=== PATIENT | male | born 1940 | race Caucasian/White ===

== ENCOUNTER → 2018-06-17 | Outpatient (CLI) | payer MEDICARE, OTHER ==
[2018-03-23 11:00] VITALS: BP 126/55
[~2018-06-17] MED LIST: ASPI-630 PO; ASPI325T11 PO; CLOP75TA PO; CRESTOR20 MG PO; GLIM2TAB2 PO; HYDR12.575 PO; HYDR25TA10 PO; METF500T16 PO; METO25TA4 PO; PIOG30TA41 PO; PSEU120T9 PO; RANI-376 PO; SERT50TA8 PO; TEMA15CA PO; TEMA30CA PO
--- NOTE | 2018-06-18 02:38 | PAIN ---
DATE OF SERVICE: 06/17/2018 INITIAL CONSULTATION FOR PAIN CLINIC CHIEF COMPLAINT: Neck and left upper extremity pain. HISTORY OF PRESENT ILLNESS: This is a 78-year-old male who presents with history of pain in the base of the neck and left arm and shoulder and into the hand and fingers since November when he fell out of a chair, fell backwards on the chair on the back of his neck and head. The patient reports he had pain within a day in the neck and shoulder posteriorly, into the anterior biceps, posterior triceps, into the forearm as well as the posterior forearm, into the hand and fingers and numbness and tingling involving all the fingers and has been fairly consistent since that time. The patient reports prior to that, he did not have any pain in the neck or the shoulders or arm. The patient reports it is not awakening him from sleep at night, however. It does not affect his bowel or bladder control. It does affect his ability to walk, sometimes when he is using his left arm, especially driving car seems to bother him with using the left arm with repetitive motions, reaching up over his head with his left arm as well and with extension of the cervical spine, it can reproduce the pain and the radiation to the left arm and hand. The patient reports he has been looking down and keeping his chin to his chest, which is becoming difficult to do as well. The patient reports he has had some chiropractic treatment, but no formal physical therapy at this time. The chiropractic treatment did help, but only temporarily. The patient does not take any medications for the pain at this time. He had tried some Tylenol and fxjv-xqd-thzaxfh Advil earlier in the summer, but without significant reduction and has not taken any of these since that time. The patient describes the pain as aching and dull, sharp, shooting, tingling with cold sensation, sometimes in the left arm and hand as well as a throbbing pain in the base of the neck, which is becoming more constant with time. The patient rates his disability rate from 0-10, 10 being the worst, is 1 with family and home responsibilities, recreation and occupation, 3 with self-care, 0 with sexual behavior and 0 with life support activities. The patient did have MRI scan of the cervical spine showing multilevel spondylosis with moderate to advanced neural foraminal narrowing present at C5-C6 with diffuse disk bulge at C3-C4, C4-C5, C5-C6, C6-C7 with C5-C6 narrowing of spinal canal and compression of thecal sac and moderate to advanced bilateral neural foraminal narrowing. C6-C7 shows disk bulge present with bilateral facet arthropathy and spinal canal narrowing and effacement of the thecal sac with moderate bilateral neural foraminal narrowing present as well. PAST MEDICAL HISTORY: Significant for type 2 diabetes, hypertension, hyperlipidemia, coronary artery disease, previous myocardial infarction, history of arthritis. PAST SURGICAL HISTORY: Includes appendectomy, coronary artery bypass grafting, cholecystectomy, cataract extraction, carpal tunnel repair and cardiac stents placed in March 2018. CURRENT MEDICATIONS: Include daily baby aspirin, Plavix, Zantac, temazepam, metoprolol, sertraline, glimepiride, Actos, Sudafed, hydrochlorothiazide, metformin and Crestor. ALLERGIES: The patient has no known drug allergies. FAMILY HISTORY: Significant for cancers and diabetes. SOCIAL HISTORY: The patient drinks about 6 alcoholic beverages a year. Does not smoke. Does not use any illegal, illicit or recreational drugs. He is and lives locally in [place], [place]. 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 REVIEW OF SYSTEMS: The patient's review of systems is positive for those items mentioned in history of present illness. All systems reviewed and otherwise negative. It is complete, full and well documented on the patient's chart. PHYSICAL EXAMINATION: VITAL SIGNS: The patient's blood pressure is 136/60, pulse 62, respirations 18, temperature 98.3 degrees Fahrenheit. Height is 5 feet 7 inches and weight is 220 pounds. GENERAL: The patient is awake, alert, oriented, appropriate, very pleasant demeanor. HEENT: Head shows normocephalic, atraumatic. Extraocular movements are intact and symmetrical. Oral cavity: Mucous membranes moist and pink. Dentition is intact. NECK: Shows anterior throat supple without palpable lymphadenopathy noted. Swallow reflex symmetrical. CHEST: Shows normal with inspection. Breath sounds clear to auscultation bilaterally. HEART: Shows S1, S2 clear. No murmurs auscultated. ABDOMEN: Soft, nontender, nondistended. No palpable organomegaly is noted. No rebound or guarding demonstrated. MUSCULOSKELETAL: Shows spine grossly in the midline. Normal appearing thoracic kyphosis, cervical lordotic curvature and lumbar lordotic curvature. The patient's neck shows good rotational motion both laterally greater than 45 degrees closer to 90 degrees right and left as well as full forward flexion with extension. The patient does have pain in the left shoulder and arm, was reproduced with extension of the spine, even 30-40 degrees off midline in neutral position. No pain on the right side. The patient's posterior cervical musculature shows symmetrical on inspection, on palpation shows some moderate tenderness, only diffusely in the inferior aspect of the cervical paraspinous musculature, more on the left than the right, but without atrophy, hypertrophy, no trigger points, no radiation of pain, no tenderness over the spinous processes. There is some moderate tenderness in the superior aspect of the trapezius on the left only, but not the right, again without asymmetry or atrophy, hypertrophy or trigger points. EXTREMITIES: The patient's upper extremities show deep tendon reflexes 2+ in the biceps and triceps tendons are equal. Motor exam is strong with family support specialist strength rated at 4/5 on the left, 5/5 on the right. Bicep and tricep flexion is intact at 5/5 and equal bilaterally. Peripheral pulses are 2+ radial distribution. No peripheral edema is noted. Shoulder shrug is strong and intact without loss of strength on resistance with some minor pain in the left base of the shoulder and neck on the left side only without loss of strength. This is true with abduction of shoulder to 90 degrees as well without loss of strength on resistance. SKIN: Warm and dry, good turgor. No edema. No sores, rashes or bruising. IMPRESSION: 1. This is a 78-year-old male with approximately 7-month history of pain in the base of the neck and left upper extremity in a radicular fashion. 2. Cervical spine MRI as noted. 3. Type 2 diabetes. 4. Coronary artery disease. 5. Hypertension. 6. Arthritis. PLAN: Options were discussed with the patient including conservative medical management, physical therapy and interventional techniques. He would like to pursue with interventional techniques. We discussed a cervical epidural steroid injection using descriptions as well as anatomical models to describe the procedure. We will first check with his director telehealth to see if it is deemed safe and appropriate to hold his Plavix for 7 days prior to potential cervical epidural steroid injection. In the meantime, the patient will maintain with stretching and strengthening exercises and we will wait to hear from his director telehealth and if deemed appropriate, we will have him return for cervical epidural steroid injection at that time. SHA CASTILLO MD DR: TON/mynor JOB#: [id number] / [id number] MISHA Hill MD
== END | disposition home or self-care (01) ==
LOC: PNCL 07:59
PROVIDERS: ATTEND Anesthesiology
DX: M54.12 Radiculopathy, cervical region (principal); M79.602 Pain in left arm; E11.9 Type 2 diabetes mellitus without complications; I25.10 Atherosclerotic heart disease of native coronary artery without angina pectoris; I10 Essential (primary) hypertension; M19.90 Unspecified osteoarthritis, unspecified site
CPT/HCPCS: G0463

== ENCOUNTER → 2018-09-02 | Outpatient (CLI) | payer MEDICARE, OTHER ==
[2018-03-23 11:00] VITALS: BP 126/55
--- NOTE | 2018-09-02 12:31 | RAD ---
MR#: [id number] Date of Study: 09/02/2018 Ordering Physician: TEE SHEPHERD, Referring Physician: BENITA SAUCEDA Tech: RT Tim (R) (N) APPROVED REPORT Test Type: Exercise Stress Nurse/Tech: Graciela Aly R.N. Test Indications: hx CABG Cardiac History: cardiac stents, htn, DM Medications: See Electronic Medical Record Medical History: See Electronic Medical Record Resting ECG: SB Resting Heart Rate: 56 bpm Resting Blood Pressure: 137/62mmHg Pretest Chest Pain: No chest pain Nurse/Tech Notes S1S2 Consent: The procedure was explained to the patient in lay terms. Informed consent was witnessed. Primitivo eout was entered into [employer]. History and Stress Test performed by RT Tim (R) (N) Stress Symptoms SOB, fatigue. Some T waves flipped . Notified Anastacio SNEED of the ST and T wave changes. wiil have pt s flori until cardiology sees images. POST EXERCISE Reason for Termination: Reached target heart rate Target HR: Yes Max HR: 119 bpm 100% of Maximum Predicted HR: 119 bpm Exercise duration: 7:59 min:sec, 3 Stage Exercise capacity: 10METs Max Blood Pressure: 188/79mmHg Blood Pressure response to exercise: Normal blood pressure response during stress. Heart Rate response to exercise: wnl Chest Pain: No. Arrhythmia: No. ST Change: Yes. slight ST elevation in lead AVR,V1. ST depression in leads II,III, V4-V6, AVF INTERPRETATION Stress EKG Conclusion: Technically difficult EKG due to motion artifact. Within in these limitations, the EKG is abnormal with lateral ST segment depressions, likely suggestive of subendocardial ischemi a. Imaging Protocol IMAGE PROTOCOL: Rest Tc-99m/stress Tc-99m 1 day Rest: Stress: Viability: Radiopharm.Tc99m AobvzprdtEa05z Sestamibi Eqhb67jOw 31.5mCi Duration 15min. 13min. Img Date 09/02/2018 09/02/2018 Inj-Img Myeu87gan. 60min. Rest Admin Site:IV - Right HandAdministrator:Varun Sorenson, RT (R)(N) Stress Admin Site: IV - Right HandAdministrator: Kristin Cole, RT (R)(N) STRESS DATA End Diast. Vol.117.0mlLVEDV index BSA56.0ml End Syst. Vol.30.0mlLVESV index BSA14.0ml Myocardial Epkt375.0gEject. Oqopdekw90.0% Stress Scores Regional WT0.00Summed WT2.00 Regional WM0.00Summed WM4.00 The rest and stress images show normal perfusion, normal contraction and thickening. LV Perf. Quant 17 Seg. SSS3.00 17 Seg. SRS4.00 17 Seg. SDS0.00 Stress Defect Extent (% LAD)0.00Rest Defect Extent (% LAD)0.00Rev. Defect Extent (% LAD)0.00 Stress Defect Extent (% LCX) 23.80Rest Defect Extent (% LCX)11.30Rev. Defect Extent (% LCX)2.50 Stress Defect Extent (% RCA)4.40Rest Defect Extent (% RCA)0.00Rev. Defect Extent (% RCA)0.00 Stress Defect Extent (% WARREN)6.10Rest Defect Extent (% WARREN)2.00Rev. Defect Extent (% WARREN)0.70 Other Information Quality:Average Risk Assessment: Low-Moderate Risk Conclusion 1. Technically difficult EKG due to motion artifact, within these limitations, the EKG is abnormal wi th 2-[address] segment depressions. 2. Below average exercise capacity with 7.0 Mets achieved. 3. Normal perfusion at stress/rest. 4. Normal EF at > 60% Signed by : Cholo Laboy, Electronically Approved : 09/02/2018 12:31:15
--- NOTE | 2018-09-07 10:56 | CARD ---
MR#: [id number] Date of Study: 09/02/2018 Ordering Physician: TEE SHEPHERD, Referring Physician: TEE SHEPHERD, Tech: Ayah Manuel [facility] APPROVED REPORT EXAM: Two-dimensional and M-mode echocardiogram with Doppler and color Doppler. Other Information Quality : FairHR: 66bpm Rhythm : NSR INDICATION Dyspnea Surgery/Intervention CABG: RISK FACTORS Hypertension Obesity Hyperlipidemia Diabetes 2D DIMENSIONS RVDd4.2 (2.9-3.5cm)Left Atrium(2D)3.9 (1.6-4.0cm) IVSd1.2 (0.7-1.1cm)Aortic Root(2D)2.9 (2.0-3.7cm) LVDd4.9 (3.9-5.9cm)LVOT Diameter2.4 (1.8-2.4cm) PWd1.2 (0.7-1.1cm)LVDs2.5 (2.5-4.0cm) FS (%) 49.4 %SV92.9 ml LVEF(%)80.6 (>50%) Aortic Valve AoV Peak Thuan.146.1cm/sAoV VTI38.4cm AO Peak GR.8.5mmHgLVOT Peak Thuan.127.8cm/s AO Mean GR.5mmHgAVA (VMAX)4.03cm2 Mitral Valve MV E Ggyyiecq894.2cm/sMV DECEL SZEV870vg MV A Cpilykod09.3cm/sE/A Ratio1.1 MV A Efvuliyg668lq Pulmonary Valve PV Peak Pgzopqeg942.7cm/s Tricuspid Valve TR P. Nvqhyadq157by/sTR Peak Gr.29mmHg Pulmonary Vein S1 Scqiyjjm56.0cm/sD2 Wruhmfmh16.1cm/s PVa defqafwe968vzeg LEFT VENTRICLE The left ventricle is normal size. There is borderline to mild concentric left ventricular hypertroph y. The left ventricular systolic function is normal and the ejection fraction is within normal range. Estimated EF 60-65% There is normal LV segmental wall motion. RIGHT VENTRICLE The right ventricle is normal size. There is normal right ventricular wall thickness. The right ventr icular systolic function is normal. ATRIA The left atrium size is normal. The right atrium size is normal. The interatrial septum is intact wit h no evidence for an atrial septal defect or patent foramen ovale as noted on 2-D or Doppler imaging. AORTIC VALVE The aortic valve is normal in structure and function. Doppler and Color Flow revealed no significant aortic regurgitation. There is no significant aortic valvular stenosis. MITRAL VALVE The mitral valve is normal in structure and function. There is no mitral valve stenosis. Doppler and Color-flow revealed mild mitral regurgitation. TRICUSPID VALVE The tricuspid valve is normal in structure and function. Doppler and Color Flow revealed mild tricusp id regurgitation. Estimated PAP is 33 mmHg. There is no tricuspid valve stenosis. PULMONIC VALVE Doppler and Color Flow revealed no pulmonic valvular regurgitation. There is no pulmonic valvular demetrio nosis. GREAT VESSELS The aortic root is normal in size. The ascending aorta is normal in size. The IVC is normal in size a nd collapses >50% with inspiration. PERICARDIAL EFFUSION There is no evidence of significant pericardial effusion. Critical Notification Critical Value: No <Conclusion> The left ventricular systolic function is normal and the ejection fraction is within normal range. Es timated EF 60-65% There is normal LV segmental wall motion. Signed by : Cholo Laboy, Electronically Approved : 09/02/2018 14:06:15
== END | disposition home or self-care (01) ==
LOC: NM 08:03
PROVIDERS: ATTEND Internal Medicine Cardiovascular Disease
DX: I08.1 Rheumatic disorders of both mitral and tricuspid valves (principal); I11.9 Hypertensive heart disease without heart failure; E11.9 Type 2 diabetes mellitus without complications; F17.200 Nicotine dependence, unspecified, uncomplicated; Z95.5 Presence of coronary angioplasty implant and graft; Z95.1 Presence of aortocoronary bypass graft
CPT/HCPCS: 78452; 93017; 93306; A9500; 96376

== ENCOUNTER → 2018-10-06 | Outpatient (CLI) | payer MEDICARE, OTHER ==
[2018-03-23 11:00] VITALS: BP 126/55
[~2018-10-06] MED LIST changes: +IOHEXOL 180 MG/ML 10 ML VIAL. ONE; +methylPREDNISolone ACETATE 40 MG/ML VIAL. ONE; +methylPREDNISolone ACETATE 80 MG/ML VIAL. ONE
--- NOTE | 2018-10-06 14:13 | PAIN ---
DATE OF SERVICE: 10/06/2018 PROGRESS NOTE FOR PAIN CLINIC DIAGNOSIS: Cervical radiculopathy with cervical degenerative disk disease. HISTORY OF PRESENT ILLNESS: The patient is a 78-year-old male who returns for followup status post initial evaluation and preauthorization to be off his Plavix. He was cleared, off of this for 5 days per his hooker on. He has been off this for 5 days now and we will proceed with a cervical epidural steroid injection today. The patient reports still pain in the base of the neck, left upper extremity and shoulders, was previously rated a 9 on a scale of 10 at its worst, on the past week, 9 on average and 9 at its least and is a 9 today. The patient reports it is aching and dull, worse with looking up or raising his head up, was looking down and he feels pretty good. He is able to do things around the yard and possibly when he is looking down at the yard to the ground, lifting his head up caused significant pain. The patient reports it awakens him from sleep once or twice a night. He sleeps about 6 hours at a time. The patient reports no new motor or sensory deficits and no new changes or other problems. Again, has been off his Plavix now for 5 days. PHYSICAL EXAMINATION: VITAL SIGNS: The patient's blood pressure 140/64, pulse 61, respirations 18 and temperature 97.9 degrees Fahrenheit. Weight is 217 pounds. GENERAL: The patient is awake, alert, oriented, appropriate and very pleasant demeanor. HEENT: Head shows normocephalic and atraumatic. Extraocular movements are intact and symmetrical. Oral cavity, mucous membranes are moist and pink. Dentition is intact. NECK: Shows anterior throat supple without palpable lymphadenopathy noted. Swallow reflex is symmetrical. CHEST: Shows normal on inspection. Breath sounds are clear to auscultation bilaterally. HEART: Shows S1 and S2 clear. No murmurs auscultated. ABDOMEN: Soft, nontender and nondistended. No palpable organomegaly is noted. BACK: Shows spine grossly in the midline, normal-appearing cervical lordotic curvature and thoracic kyphotic is slightly exaggerated. Cervical paraspinous muscle shows symmetrical on inspection and palpation shows some moderate tenderness diffusely bilaterally but only diffusely in the inferior aspect of the cervical paraspinous muscles as well as the left greater than right superior medial trapezius on the left than right but no trigger points. No atrophy or hypertrophy and no radiation of pain. The patient has good rotational motion of the cervical spine with some moderate tenderness with extension but not with forward flexion, right or left lateral rotation. EXTREMITIES: The patient's upper extremities show deep tendon reflexes 2+ in the biceps and triceps tendons. Motor exam is approximately 4 on a scale 5 on the left and 5/5 on the right. Peripheral pulses are 2+ radial distribution. No peripheral edema is noted bilaterally. Options were discussed with the patient. The patient's old chart was reviewed as well as his current medication regimen updated. Current review of systems updated today as well. We will proceed with a cervical epidural steroid injection today with fluoroscopic guidance. Risks were again discussed including, but not limited to bleeding, infection, possibility of epidural hematoma, subsequent neurological compromise, dural puncture, headaches, spinal cord and/or nerve damage, side effects of steroid medication and poor results regarding pain control. The patient understands and wished to proceed. The patient will return to the clinic in approximately 2 weeks for followup, was counseled as to return appointment, activity level and side effects to be aware of. DIAGNOSIS: Cervical radiculopathy with cervical degenerative disk disease. PROCEDURE: Cervical epidural steroid injection, translaminar approach, C6-C7 level using C-arm fluoroscopic guidance under sterile prep and drape using local anesthetic. MEDICATION INJECTED: A total of 120 mg Depo-Medrol plus 5 mL of preservative-free normal saline and 2 mL of contrast. CONDITION AT DISCHARGE: Stable. The patient tolerated procedure well and had no complications. SHA CASTILLO MD DR: TON/mynor JOB#: [id number] / [id number]
== END ==
LOC: PNCL 08:48
PROVIDERS: ATTEND Anesthesiology
DX: M50.123 Cervical disc disorder at C6-C7 level with radiculopathy (principal); M25.512 Pain in left shoulder
CPT/HCPCS: 62321; J1030; J1040; Q9965

== ENCOUNTER → 2018-11-15 | Outpatient (CLI) | payer MEDICARE, OTHER ==
[2018-03-23 11:00] VITALS: BP 126/55
[~2018-11-15] MED LIST changes: -IOHEXOL 180 MG/ML 10 ML VIAL. ONE; -methylPREDNISolone ACETATE 40 MG/ML VIAL. ONE; -methylPREDNISolone ACETATE 80 MG/ML VIAL. ONE
--- NOTE | 2018-11-15 10:19 | RAD ---
EXAM: Lumbar spine, 3 views. HISTORY: Sacroiliac and lower back pain. COMPARISON: None. FINDINGS: 3 views of the lumbar spine are obtained. There are hypoplastic T12 ribs or elongated congenitally nonfused L1 transverse processes. There is a transitional lumbosacral segment. These are normal variants. There is lumbar levoscoliosis. There is degenerative endplate remodeling and osteophytosis throughout the lumbar spine. There is advanced facet arthropathy predominantly at the lumbosacral junction. There are cholecystectomy clips. IMPRESSION: 1. Multilevel degenerative change throughout the lumbar spine and lumbar scoliosis, described above. 2. Transitional lumbosacral segment and thoracolumbar segment, a normal variant. Electronically signed by: Kristin Garcia MD (11/15/2018 10:16 AM) [facility]
== END | disposition home or self-care (01) ==
LOC: RAD 09:34
PROVIDERS: ATTEND Family Medicine
DX: M47.816 Spondylosis without myelopathy or radiculopathy, lumbar region (principal); M41.86 Other forms of scoliosis, lumbar region; M12.88 Other specific arthropathies, not elsewhere classified, other specified site; M53.3 Sacrococcygeal disorders, not elsewhere classified; Z90.49 Acquired absence of other specified parts of digestive tract
CPT/HCPCS: 72100

== ENCOUNTER → 2018-11-16 | Outpatient (CLI) | payer MEDICARE, OTHER ==
[2018-03-23 11:00] VITALS: BP 126/55
[~2018-11-16] MED LIST changes: +IOHEXOL 180 MG/ML 10 ML VIAL. ONE; +methylPREDNISolone ACETATE 40 MG/ML VIAL. ONE; +methylPREDNISolone ACETATE 80 MG/ML VIAL. ONE
--- NOTE | 2018-11-16 22:30 | PAIN ---
DATE OF SERVICE: 11/16/2018 PROGRESS NOTE FOR PAIN CLINIC DIAGNOSIS: Cervical radiculopathy with cervical degenerative disk disease. HISTORY OF PRESENT ILLNESS: The patient is a 78-year-old male who returns for followup status post an evaluation and holding his Plavix, now he has been off for 5 days for a second injection today. The patient reports still significant pain in the base of the neck and shoulders, especially in the left upper extremity, left posterior deltoid, triceps, into the forearm and hand with some numbness and tingling as well. The patient reports it is a 3 on a scale of 10 at all times, average, worst and least over the past week. No new motor or sensory deficits or other changes. The patient reports it does not awaken him from sleep at night. It is worse with repetitive motions, left upper extremity, raising his arm over his head or lifting items with his left arm. The patient reports no other changes. PHYSICAL EXAMINATION: VITAL SIGNS: The patient's blood pressure is 135/62, pulse 58, respirations are 16, temperature is 98.4 degrees Fahrenheit, height is 5 feet 7 inches, weight is 215 pounds. GENERAL: The patient is awake, alert, oriented, appropriate, very pleasant demeanor. HEENT: Shows normocephalic, atraumatic. Extraocular movements are intact and symmetrical. Oral cavity: Mucous membranes moist and pink. Dentition is intact. NECK: Shows anterior throat supple without palpable lymphadenopathy noted. Swallow reflex symmetrical. CHEST: Shows normal on inspection. Breath sounds are clear to auscultation bilaterally. HEART: Shows S1, S2 clear. No murmurs auscultated. ABDOMEN: Soft, nontender, nondistended. No palpable organomegaly is noted. No rebound or guarding demonstrated. BACK: Shows spine grossly in the midline. Normal-appearing thoracic kyphosis and lumbar lordotic curvature. Cervical paraspinous muscle shows symmetrical on inspection, on palpation shows some moderate tenderness diffusely bilaterally, but only diffusely without significant radiation. The patient has good rotational motion of cervical spine, both laterally as well as extension and flexion without significant difficulty. EXTREMITIES: The patient's upper extremities show deep tendon reflexes 2+ in the biceps and triceps tendons. Motor exam shows a 4 on a scale of 5 on the left and 5/5 on the right. Peripheral pulses are 2+ radial distribution. No peripheral edema is noted bilaterally. Options were discussed with the patient. The patient's old chart was reviewed as was his current medication regimen updated. Current review of systems updated today as well. We will proceed with a second in the series of cervical epidural steroid injection today with fluoroscopic guidance. Risks were again discussed including, but not limited to bleeding, infection, possibility of epidural hematoma, subsequent neurological compromise, dural puncture, headaches, spinal cord and/or nerve damage, side effects of steroid medication and poor results regarding pain control. The patient understands and wished to proceed. The patient will return to clinic in approximately 2 weeks for followup. She was counseled on return appointment, activity level and side effects to be aware of. DIAGNOSIS: Cervical radiculopathy with cervical degenerative disk disease. PROCEDURE: Cervical epidural steroid injection, translaminar approach C6-C7 level using C-arm fluoroscopic guidance under sterile prep and drape using local anesthetic. MEDICATION INJECTED: A total of 120 mg Depo-Medrol plus 5 mL of preservative-free normal saline and 2 mL of contrast. CONDITION AT DISCHARGE: Stable. The patient tolerated the procedure well, had no complications. SHA CASTILLO MD DR: TON/mynor JOB#: [id number] / [id number]
== END ==
LOC: PNCL 10:59
PROVIDERS: ATTEND Anesthesiology
DX: M50.123 Cervical disc disorder at C6-C7 level with radiculopathy (principal)
CPT/HCPCS: 62321; J1030; J1040; Q9965

== ENCOUNTER 2018-12-28 11:03 | Emergency (ER) | payer MEDICARE, OTHER ==
[~2018-12-28] VITALS: Ht 170.2 cm; Wt 97.5 kg
[~2018-12-28 11:03] MED LIST changes: -IOHEXOL 180 MG/ML 10 ML VIAL. ONE; -methylPREDNISolone ACETATE 40 MG/ML VIAL. ONE; -methylPREDNISolone ACETATE 80 MG/ML VIAL. ONE
--- NOTE | 2018-12-28 11:59 | RAD ---
CHEST AP ONLY History: Shortness of breath. COMPARISON: None are available Widening of the cardiomediastinal silhouette although this may be accentuated by the portable technique and low lung volumes. No evidence of pneumothorax. No pleural effusion. Limited penetration of the left lung base, difficult to exclude small effusion or focal infiltrate here. Lungs appear otherwise clear. Degenerative changes of both shoulders. IMPRESSION: 1. Widening of the cardiomediastinal silhouette, although this may be exaggerated by technique. 2. Mild density at the left lateral lung base, may just be due to limited penetration, but small infiltrate or effusion is possible. Electronically signed by: Mohit Sheldon MD (12/28/2018 11:56 AM) [id number]
[2018-12-28 12:10] LABS: BASO % 1 % (0-3); EOS # 0.2 x10^3/uL (0.0-0.7); EOS % 4 % (0-3); HEMATOCRIT 33.6 % (39.0-53.0); HEMOGLOBIN 11.3 g/dL (13.0-17.5); LYMPH % 19 % (24-48); MEAN CORPUSCULAR HEMOGLOBIN 31 pg (25-35); MEAN CORPUSCULAR HGB CONC 34 g/dL (31-37); MEAN CORPUSCULAR VOLUME 92 fL (79-100); MONO # 0.4 x10^3/uL (0.0-1.1); MONO % 8 % (0-9); NEUT # 3.6 x10^3/uL (1.8-7.7); NEUT % 69 % (31-73); PLATELET COUNT 163 x10^3/uL (140-400); RED BLOOD COUNT 3.64 x10^6/uL (4.30-5.70); RED CELL DISTRIBUTION WIDTH 15.2 % (11.5-14.5); WHITE BLOOD COUNT 5.2 x10^3/uL (4.0-11.0)
--- NOTE | 2018-12-28 12:14 | PHYS DOC ---
Past Medical History Past Medical History: Diabetes-Type II, GERD, Hypertension Past Surgical History: Appendectomy, Cholecystectomy, Coronary Bypass Surgery Additional Past Surgical Histo: X2 CARDIAC STENTS PLACED IN DEC Alcohol Use: None Drug Use: None Adult General Chief Complaint Chief Complaint: WEAKNESS/GENERALIZED HPI HPI Patient is a 78 year old male with history of CAD, CABG, hypertension dyslipidemia and diabetes who presents with generalized weakness which is been ongoing for the past several months. Today, the patient states weakness was worse with exertion and that he briefly felt lightheaded. Denies headache, change of vision, chest pain palpitations shortness of breath or sweats. No fevers or chills. No abdominal pain, urinary frequency urgency dysuria, diarrhea. No new medications or missed medications. No other acute symptoms or complaints. 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 All other review symptoms are negative. All other systems were reviewed and found to be within normal limits, except as documented in this note. Current Medications Current Medications Current Medications Medications (Trade) Dose Ordered Sig/Juan Start Time Stop Time Status Last Admin Dose Admin Lorazepam (Ativan Inj) 1 mg 1X ONCE 12/28/18 12:45 12/28/18 12:46 Cancel Sodium Chloride 1,000 ml @ 1,000 mls/hr 1X ONCE 12/28/18 13:30 12/28/18 14:29 12/28/18 13:40 1,000 MLS/HR Allergies Allergies Allergies Coded Allergies Type Severity Reaction Last Updated Verified No Known Drug Allergies 05/10/14 No Physical Exam Physical Exam Constitutional: Well developed, well nourished, no acute distress, non-toxic appearance. [] HENT: Normocephalic, atraumatic, bilateral external ears normal, oropharynx moist, no oral exudates, nose normal. [] Eyes: PERRLA, EOMI, conjunctiva normal, no discharge. [] Neck: Normal range of motion, no tenderness, supple, no stridor. [] Cardiovascular:Heart rate regular rhythm, no murmur [] Lungs & Thorax: Bilateral breath sounds clear to auscultation [] Abdomen: Bowel sounds normal, soft, no tenderness, no masses, no pulsatile masses. [] Skin: Warm, dry, no erythema, no rash. [] Back: No tenderness, no CVA tenderness. [] Extremities: No tenderness, no cyanosis, no clubbing, ROM intact, no edema. [] Neurologic: Alert and oriented X 3, normal motor function, normal sensory function, no focal deficits noted. [] Psychologic: Affect normal, judgement normal, mood normal. [] Current Patient Data Vital Signs Vital Signs Date Time Temp Pulse Resp B/P (MAP) Pulse Ox O2 Delivery O2 Flow Rate FiO2 12/28/18 11:20 98.1 64 18 161/72 (101) 95 Room Air 98.1 Lab Values Laboratory Tests Test 12/28/18 12:00 12/28/18 12:40 White Blood Count 5.2 x10^3/uL (4.0-11.0) Red Blood Count 3.64 x10^6/uL (4.30-5.70) L Hemoglobin 11.3 g/dL (13.0-17.5) L Hematocrit 33.6 % (39.0-53.0) L Mean Corpuscular Volume 92 fL (79-100) Mean Corpuscular Hemoglobin 31 pg (25-35) Mean Corpuscular Hemoglobin Concent 34 g/dL (31-37) Red Cell Distribution Width 15.2 % (11.5-14.5) H Platelet Count 163 x10^3/uL (140-400) Neutrophils (%) (Auto) 69 % (31-73) Lymphocytes (%) (Auto) 19 % (24-48) L Monocytes (%) (Auto) 8 % (0-9) Eosinophils (%) (Auto) 4 % (0-3) H Basophils (%) (Auto) 1 % (0-3) Neutrophils # (Auto) 3.6 x10^3/uL (1.8-7.7) Lymphocytes # (Auto) 1.0 x10^3/uL (1.0-4.8) Monocytes # (Auto) 0.4 x10^3/uL (0.0-1.1) Eosinophils # (Auto) 0.2 x10^3/uL (0.0-0.7) Basophils # (Auto) 0.0 x10^3/uL (0.0-0.2) Sodium Level 139 mmol/L (136-145) Potassium Level 4.1 mmol/L (3.5-5.1) Chloride Level 102 mmol/L (98-107) Carbon Dioxide Level 27 mmol/L (21-32) Anion Gap 10 (6-14) Blood Urea Nitrogen 36 mg/dL (8-26) H Creatinine 1.2 mg/dL (0.7-1.3) Estimated GFR (Cockcroft-Gault) 58.4 BUN/Creatinine Ratio 30 (6-20) H Glucose Level 268 mg/dL (70-99) H Calcium Level 9.4 mg/dL (8.5-10.1) Total Bilirubin 0.3 mg/dL (0.2-1.0) Aspartate Amino Transferase (AST) 17 U/L (15-37) Alanine Aminotransferase (ALT) 25 U/L (16-63) Alkaline Phosphatase 84 U/L (46-116) Troponin I Quantitative < 0.017 ng/mL (0.000-0.055) Total Protein 6.7 g/dL (6.4-8.2) Albumin 3.2 g/dL (3.4-5.0) L Albumin/Globulin Ratio 0.9 (1.0-1.7) L Urine Collection Type Void Urine Color Yellow Urine Clarity Clear Urine pH 5.5 Urine Specific [place] 1.025 Urine Protein Negative mg/dL (NEG-TRACE) Urine Glucose (UA) 250 mg/dL (NEG) Urine Ketones (Stick) Negative mg/dL (NEG) Urine Blood Negative (NEG) Urine Nitrite Negative (NEG) Urine Bilirubin Negative (NEG) Urine Urobilinogen Dipstick 1.0 mg/dL (0.2 mg/dL) Urine Leukocyte Esterase Negative (NEG) Urine RBC 0 /HPF (0-2) Urine WBC 5-10 /HPF (0-4) Urine Squamous Epithelial Cells Occ /LPF Urine Bacteria 0 /HPF (0-FEW) Urine Mucus Slight /LPF Laboratory Tests 12/28/18 12:00 Laboratory Tests 12/28/18 12:00 EKG EKG [EKG: Reviewed] Radiology/Procedures Radiology/Procedures [] Course & Med Decision Making Course & Med Decision Making Pertinent Labs and Imaging studies reviewed. (See chart for details) [Labs EKG imaging reviewed. Patient blood sugar and BUN/Cr ratio elevated with a contributing symptoms. Orthostatic vital signs negative. IV fluids given. Recommendations are to follow up with patient's PCP for further management. Patient verbalizes understanding agreement discharge instructions prior to departure. Dragon Disclaimer Dragon Disclaimer This electronic medical record was generated, in whole or in part, using a voice recognition dictation system. Departure Departure Impression: Primary Impression: Hyperglycemia Additional Impression: Dehydration Disposition: 01 HOME, SELF-CARE Condition: STABLE Referrals: MISHA SHETH MD (PCP) Patient Instructions: Dehydration, Adult, [id number], Hyperglycemia Additional Instructions: Go home and rest crease fluids and follow-up with PCP in the next 2-3 days for admission and further management of diabetes. Return to the ED if worsening symptoms. Problem Qualifiers JESUS MORENO DO Dec 28, 2018 12:14
[2018-12-28 12:21] LABS: CALCIUM 9.4 mg/dL (8.5-10.1); CREATININE 1.2 mg/dL (0.7-1.3); GFR 58.4; POTASSIUM 4.1 mmol/L (3.5-5.1)
[2018-12-28 12:27] LABS: ALBUMIN 3.2 g/dL (3.4-5.0); ALBUMIN/GLOBULIN RATIO 0.9 (1.0-1.7); TOTAL BILIRUBIN 0.3 mg/dL (0.2-1.0); TOTAL PROTEIN 6.7 g/dL (6.4-8.2)
--- NOTE | 2018-12-28 12:43 | EKG ---
[facility] [address] [place] [address] Test Date: 2018-12-28 Test Time: 11:25:58 Pat Name: JOSE MIGUEL AC Department: Room: Gender: M Quality Rep: : 1940 Requested By: JESUS MORENO Order Number: [id number] Reading MD: Measurements Intervals [place] Rate: 59 P: -55 [place]: 122 QRS: -3 QRSD: 96 T: 76 QT: 444 QTc: 444 Interpretive Statements SINUS RHYTHM LEFTWARD AXIS T ABNORMALITY IN HIGH LATERAL LEADS ABNORMAL ECG RI6.01 No previous ECG available for comparison
[2018-12-28 12:55] LABS: BILIRUBIN,URINE NEGATIVE (NEG); CLARITY,URINE CLEAR; COLOR,URINE YELLOW; NITRITE,URINE NEGATIVE (NEG); PH,URINE 5.5; PROTEIN,URINE NEGATIVE (NEG-TRACE)
[2018-12-28 13:30] LABS: SQUAMOUS EPITHELIAL CELL,UR OCC /LPF
[2018-12-28] MEDS ORDERED: IV NORMAL SALINE 1000ML BAG 1,000 ML IV ONE (13:30)
[2018-12-28 13:31] LABS: BACTERIA,URINE 0 /HPF (0-FEW); RBC,URINE 0 /HPF (0-2)
[2018-12-28 13:45] VITALS: BP 149/64
== END 2018-12-28 14:22 | disposition home or self-care (01) ==
LOC: ER 11:03
DX: E11.65 Type 2 diabetes mellitus with hyperglycemia (principal); E86.0 Dehydration; R42 Dizziness and giddiness; R53.1 Weakness; K21.9 Gastro-esophageal reflux disease without esophagitis; I10 Essential (primary) hypertension; I25.10 Atherosclerotic heart disease of native coronary artery without angina pectoris; Z90.89 Acquired absence of other organs; Z90.49 Acquired absence of other specified parts of digestive tract; Z95.5 Presence of coronary angioplasty implant and graft
CPT/HCPCS: 36415; 71045; 80053; 81001; 84484; 85025; 87086; 93005; 96360; 99285; J7030

== ENCOUNTER → 2019-03-04 | Outpatient (CLI) | payer MEDICARE, OTHER ==
[~2019-03-04] MED LIST changes: -GLIM2TAB2 PO; +GLIM2TAB3 PO
--- NOTE | 2019-03-04 08:37 | PAIN ---
DATE OF SERVICE: 03/04/2019 PROGRESS NOTE FOR PAIN CLINIC DIAGNOSES: 1. Cervical radiculopathy with cervical degenerative disk disease. 2. Lumbar radiculopathy with lumbar degenerative disk disease. HISTORY OF PRESENT ILLNESS: The patient is an 79-year-old male who returns for followup status post cervical epidural steroid injection x 2. The patient reports only about 20% improvement overall in the neck and upper extremities, left greater than right, but still significant pain in the base of the neck, left arm with activity, weight lifting and general daily activities. The patient reports it awakens him from sleep about 4-5 times. His main complaint is low back and left lower extremity pain. The patient reports pain across the low back, but in the left leg, posterior gluteus, posterolateral thigh, anterior thigh, anterior medial thigh, medial lower leg and posterior calf to the ankle on the left side. The patient reports no new motor or sensory deficits, no new bowel or bladder incontinence. He did have an MRI scan of the lumbar spine dated 01/13/2019 showing multilevel degenerative processes with bulging disks at L1-L2, L2-L3, L3-L4 with [id number] facet arthropathy, left greater than right, with degenerative changes resulting in moderate bilateral foraminal narrowing, left greater than right at L4-L5 as well. The patient reports it is worse with walking, standing and changing positions, better with sitting or lying down, but still awakens him from sleep about every 4-5 hours. PHYSICAL EXAMINATION: VITAL SIGNS: The patient's blood pressure is 115/38, pulse 50, respirations 18, temperature 98.0 degrees Fahrenheit, height is 5 feet 7 inches, weight is 212 pounds. GENERAL: The patient is awake, alert, oriented, appropriate, very pleasant demeanor. HEENT: Shows normocephalic, atraumatic. Extraocular movements are intact and symmetrical. Oral cavity: Mucous membranes moist and pink. Dentition is intact. NECK: Shows anterior throat supple without palpable lymphadenopathy noted. Swallow reflex symmetrical. CHEST: Shows normal on inspection. Breath sounds clear to auscultation bilaterally. HEART: Shows S1, S2 clear. No murmurs auscultated. ABDOMEN: Soft, nontender, nondistended. BACK: Shows spine grossly in the midline. Normal appearing thoracic kyphosis and lumbar lordotic curvature. Lumbar paraspinous muscle shows symmetrical on inspection, on palpation shows some moderate tenderness diffusely bilaterally, but only diffusely without radiation. EXTREMITIES: The patient's lower extremities show deep tendon reflexes at 1+ in the patellar and tendo calcaneus tendons are equal. Motor exam is strong with 5/5 dorsiflexion, extension, quadriceps and hamstring flexion and symmetrical. Peripheral pulses are 1+ posterior tibia. No peripheral edema is noted bilaterally. Upper extremities show deep tendon reflexes at 2+ in the biceps and triceps tendons. Motor exam is strong with sample grinder strength rated at 5/5 on the right, 4/5 on the left. Peripheral pulses are 2+ radial distribution. PLAN: Options were discussed with the patient. The patient's old chart was reviewed as his current medication regimen updated. Current review of systems updated today as well. We will have the patient hold his Plavix once again as he has maintained this medication for 7 days prior to returning for a lumbar epidural steroid injection. The patient will continue with stretching and strengthening exercises, maintain activity as tolerated and will follow up once Plavix is held for lumbar epidural steroid injection on next visit. SHA CASTILLO MD DR: TON/mynor JOB#: [id number] / [id number]
== END | disposition home or self-care (01) ==
LOC: PNCL 07:45
PROVIDERS: ATTEND Anesthesiology
DX: M51.16 Intervertebral disc disorders with radiculopathy, lumbar region (principal); M50.10 Cervical disc disorder with radiculopathy, unspecified cervical region
CPT/HCPCS: G0463

== ENCOUNTER → 2019-03-21 | Outpatient (CLI) | payer MEDICARE, OTHER ==
[~2019-03-21] MED LIST changes: +IOHEXOL 180 MG/ML 10 ML VIAL. ONE; +METO50TA6 PO; +TRAM50TA PO; +methylPREDNISolone ACETATE 40 MG/ML VIAL. ONE; +methylPREDNISolone ACETATE 80 MG/ML VIAL. ONE
--- NOTE | 2019-03-21 10:51 | PAIN ---
DATE OF SERVICE: 03/21/2019 PROGRESS NOTE FOR PAIN CLINIC DIAGNOSES: 1. Cervical radiculopathy with cervical degenerative disk disease. 2. Lumbar radiculopathy with lumbar degenerative disk disease. HISTORY OF PRESENT ILLNESS: The patient is an 79-year-old male who returns for followup status post cervical epidural steroid injections x 2. The patient reports about 20% improvement overall after the last injection, which was on 11/16/2018. The patient is having some pain in the low back and left lower extremity as well, but the pain in the neck is returning now at base of the neck, left shoulder, left upper extremity, mostly in the posterior aspect of the triceps and into the posterior and anterior forearm. The patient reports some tingling and numbness in the hand occasionally, but only occasionally. No loss of motor function. The patient reports the pain is 6 on a scale of 10 at all times, worst, average and least over the past week and is a 6 today. The patient reports it is aching and dull, again shooting into the left leg as well. The patient reports it awakens him from sleep about every 5-6 hours, but only very rarely. The patient reports no new motor or sensory deficits, no new bowel or bladder incontinence or other complaints. PHYSICAL EXAMINATION: VITAL SIGNS: The patient's blood pressure is 144/66, pulse 63, respirations 16, temperature is 98.4 degrees Fahrenheit, height is 5 feet 7 inches, weight is 215 pounds. GENERAL: The patient is awake, alert, oriented, appropriate, very pleasant demeanor. The patient is accompanied by his spouse. HEENT: Shows normocephalic, atraumatic. Extraocular movements are intact and symmetrical. Oral cavity: Mucous membranes moist and pink. Dentition is intact. NECK: Shows anterior throat supple without palpable lymphadenopathy noted. Swallow reflex is symmetrical. CHEST: Shows normal on inspection. Breath sounds are clear bilaterally. HEART: Shows S1, S2 clear. No murmurs auscultated. ABDOMEN: Soft, nontender, nondistended. No palpable organomegaly is noted. No rebound or guarding demonstrated. BACK: Shows spine grossly in the midline, normal-appearing cervical lordotic curvature, some minor flattening of the lumbar lordotic curvature, normal thoracic kyphotic curvature. The patient's cervical paraspinous muscle shows symmetrical on inspection, with palpation shows some moderate tenderness diffusely, but only diffusely in the inferior aspect of the cervical paraspinous muscles as well as the superior medial trapezius, greater on the left than the right. The patient has full rotational motion of cervical spine, both laterally as well as extension and flexion without significant difficulty. EXTREMITIES: Upper extremities show deep tendon reflexes 2+ in the biceps, triceps tendons. Motor exam is approximately 4 on a scale of 5 with left pickle processor strength and 5/5 on the right. The patient's low back shows some moderate tenderness with palpation, but symmetrical paraspinous musculature throughout the lumbar distribution, over the lower distribution shows some moderate tenderness, again more on the left than the right, but symmetrical. The patient has good rotational motion of lumbar spine as well, both laterally as well as extension and flexion without difficulty. Lower extremities show deep tendon reflexes 1+ patellar and tendo calcaneus tendons. Motor exam is strong with 5/5 dorsiflexion, extension, equal. Options were discussed with the patient. The patient's old chart was reviewed as his current medication regimen updated. Current review of systems updated today as well. We will proceed with a third in the series of cervical epidural steroid injection today with fluoroscopic guidance. Risks were again discussed including, but not limited to bleeding, infection, possibility of epidural hematoma, subsequent neurological compromise, dural puncture, headaches, spinal cord and/or nerve damage, side effects of steroid medication and poor results regarding pain control. The patient understands and wished to proceed. The patient will return to clinic in approximately 2 weeks for followup. He was counseled on return appointment, activity level and side effects to be aware of. DIAGNOSES: Cervical radiculopathy with cervical degenerative disk disease. PROCEDURE: Cervical epidural steroid injection, translaminar approach C6-C7 level using C-arm fluoroscopic guidance under sterile prep and drape using local anesthetic. MEDICATION INJECTED: A total of 120 mg Depo-Medrol plus 5 mL of preservative-free normal saline and 2 mL of contrast. CONDITION AT DISCHARGE: Stable. The patient tolerated the procedure well, had no complications. SHA CASTILLO MD DR: TON/mynor JOB#: [id number] / [id number]
== END | disposition home or self-care (01) ==
LOC: PNCL 08:53
PROVIDERS: ATTEND Anesthesiology
DX: M50.123 Cervical disc disorder at C6-C7 level with radiculopathy (principal); M51.16 Intervertebral disc disorders with radiculopathy, lumbar region
CPT/HCPCS: 62321; J1030; J1040; Q9965

== ENCOUNTER → 2019-04-11 | Outpatient (CLI) | payer MEDICARE, OTHER ==
[~2019-04-11] MED LIST changes: -GLIM2TAB3 PO; +GLIM2TAB7 PO; -IOHEXOL 180 MG/ML 10 ML VIAL. ONE; -methylPREDNISolone ACETATE 40 MG/ML VIAL. ONE; -methylPREDNISolone ACETATE 80 MG/ML VIAL. ONE
--- NOTE | 2019-04-11 11:39 | PAIN ---
DATE OF SERVICE: 04/11/2019 PROGRESS NOTE FOR PAIN CLINIC DIAGNOSES: 1. Cervical radiculopathy with cervical degenerative disk disease. 2. Lumbar radiculopathy with lumbar degenerative disk disease. HISTORY OF PRESENT ILLNESS: The patient is an 79-year-old male who returns for followup status post cervical epidural steroid injections x 2. The patient reports no significant improvement about 20% for a few days and then the pain returns like it was in the base of neck and shoulders, essentially bilaterally. The patient reports somewhat worse on the right than the left, but present bilaterally where he is having difficulty walking, standing, having to use a shopping cart to support himself at a store, etc. The patient reports no new motor or sensory deficits, no new changes, but still significant pain in the low back, left lower extremity as well. The patient has maintained on his Plavix, however, since his last visit. We discussed possible lumbar epidural steroid injection today, but the patient has been on his Plavix and did not go off of it. The patient reports the pain is aching and tingling in the base of the neck and shoulders as well as the low back into the left leg, posterior gluteus, lateral thigh, lateral anterior thigh. The patient reports it is a 2 on a scale of 10 at all times, average, worst and least, waking him from sleep about every 4-5 hours. He can get up and change into a reclining chair and it decreases the pain in the back, but his neck pain is much worse during the day with walking activities, household activities as well. The patient reports his has been ill and has been taking care of her also which has put an increased strain on his neck and his back. PHYSICAL EXAMINATION: VITAL SIGNS: The patient's blood pressure 138/60, pulse 50, respirations 18, temperature 97.6 degrees Fahrenheit, height is 5 feet 9 inches, and weight is 211 pounds. GENERAL: The patient is awake, alert, oriented, appropriate, very pleasant demeanor. HEENT: Shows normocephalic, atraumatic. Extraocular movements are intact and symmetrical. The patient wears eye glasses. Oral cavity: Mucous membranes are moist and pink. NECK: Shows anterior throat supple. CHEST: Shows normal on inspection. Breath sounds are clear bilaterally. HEART: Shows S1, S2 clear. ABDOMEN: Soft, nontender, nondistended. BACK: Shows spine grossly in the midline. Cervical paraspinous muscle shows symmetrical on inspection, with palpation shows some moderate tenderness throughout the middle and lower distribution of paraspinous muscles, also into the superior medial and lateral trapezius, more on the right than the left, but with good rotational motion of cervical spine, both laterally as well as extension and flexion without significant increase in pain. The patient's lower back shows slight flattening of the lordotic curvature, with palpation shows some moderate tenderness bilaterally and diffusely in the low lumbar distribution, but only diffusely without radiation. The patient has good rotational motion of lumbar spine, both laterally as well as extension and flexion greater than 10 degrees right and left as well as extension 10 degrees, forward flexion 45 degrees without significant pain reported. EXTREMITIES: The patient's lower extremities show deep tendon reflexes at 1+ in the patellar and tendo calcaneus tendons. Motor exam is strong with 5/5 dorsiflexion, extension, quadriceps and hamstring flexion bilaterally. Upper extremities showed 2+ biceps and triceps tendons. Motor exam is approximately 4 on a scale 5 on the left and 5/5 on the right with fast food shift supervisor strength. Peripheral pulses are 2+ radial, 1+ posterior tibia. No peripheral edema is noted bilaterally. Options were discussed with the patient. The patient's old chart was reviewed as his current medication regimen updated. Current review of systems updated today as well. We will hold on any further injections at this time. We did discuss potential neurosurgical evaluation and we will order a new MRI scan of cervical spine for a neurosurgical evaluation. Also, the patient will check schedule and hold Plavix for 7 days prior to lumbar epidural steroid injection. SHA CASTILLO MD DR: TON/mynor JOB#: [id number] / [id number]
== END | disposition home or self-care (01) ==
LOC: PNCL 08:59
PROVIDERS: ATTEND Anesthesiology
DX: M51.16 Intervertebral disc disorders with radiculopathy, lumbar region (principal); M50.10 Cervical disc disorder with radiculopathy, unspecified cervical region
CPT/HCPCS: G0463

== ENCOUNTER → 2019-04-19 | Outpatient (CLI) | payer MEDICARE, OTHER ==
--- NOTE | 2019-04-19 14:22 | RAD ---
CERVICAL SPINE WO CONTRAST History: Neck pain. Bilateral arm radiculopathy. Technique: Multiplanar, multi sequential noncontrast MR imaging was performed of the cervical spine. Comparison: None Findings: Normal vertebral body height and alignment. No fracture. No pathologic signal abnormality within the cervical spinal cord. Mucous retention cyst or polyp within the left inferior maxillary sinus. C2-C3: No canal or neuroforaminal narrowing. Moderate right facet arthropathy. C3-C4: Posterior disc osteophyte complex. Mild cord flattening. Partial effacement of ventral CSF space. Dorsal CSF spaces preserved. No canal narrowing. Uncovertebral and facet arthropathy. Moderate bilateral neural foraminal narrowing. C4-C5: Posterior disc osteophyte complex with central disc protrusion. Mild canal narrowing. Cord flattening. Uncovertebral and facet arthropathy. Moderate left and mild right neuroforaminal narrowing. C5-C6: Disc osteophyte complex. Moderate canal narrowing. Cord flattening. Uncovertebral and facet arthropathy. Severe bilateral neural foraminal narrowing. C6-C7: Posterior disc osteophyte complex. Mild cord flattening. Minimal canal narrowing. Uncovertebral and facet arthropathy. Mild right and moderate left neural foraminal narrowing. C7-T1: Posterior disc osteophyte complex eccentric to the right. Mild cord flattening. No canal narrowing. Uncovertebral and facet arthropathy. Mild left neuroforaminal narrowing. Impression: 1. Moderate multilevel cervical spondylosis with canal narrowing most prominent C5-C6. 2. Multilevel neural foraminal narrowing most severe C5-C6. Electronically signed by: Andrew Dean DO (04/19/2019 2:19 PM) [id number]
== END ==
LOC: MRI 12:57
PROVIDERS: ATTEND Anesthesiology
DX: M47.22 Other spondylosis with radiculopathy, cervical region (principal); M48.02 Spinal stenosis, cervical region
CPT/HCPCS: 72141

== ENCOUNTER → 2019-05-11 | Outpatient (CLI) | payer MEDICARE, OTHER ==
--- NOTE | 2019-05-11 11:41 | PAIN ---
DATE OF SERVICE: 05/11/2019 PROGRESS NOTE FOR PAIN CLINIC DIAGNOSES: 1. Cervical radiculopathy with cervical degenerative disk disease. 2. Lumbar radiculopathy with lumbar degenerative disk disease. HISTORY OF PRESENT ILLNESS: The patient is an 79-year-old male who returns for followup status post cervical epidural steroid injections x 3. The patient had initial decrease in pain, but only about 20% to 30%. The patient is scheduled to see Neurosurgery in about 2 weeks. The patient's chief complaint today is low back and left lower extremity pain. We had seen him recently on 04/11 and discussed possible epidural steroid injection; however, the patient is being maintained on his Plavix and continues to take this, still pain in the low back, left lower extremity, posterior gluteus, posterolateral thigh, lateral anterior thigh and medial lower leg on the left side, it is aching, dull pain. The patient reports it is a 3 on a scale of 10 at all times, worst, least and average and a 3 today. The patient reports it awakens him from sleep still about 4-5 o'clock in the morning and he is up for the rest of the day because the pain is too uncomfortable to get back to sleep. The patient reports it is aching and shooting, radiating and becoming more constant. The patient reports no new motor or sensory deficits, no new bowel or bladder incontinence. He did have MRI scan of cervical spine. We will give him a copy of the results as well and he will take this with him for neurosurgical evaluation next month. PHYSICAL EXAMINATION: VITAL SIGNS: The patient's blood pressure 126/63, pulse 61, respirations 18, temperature 97.9 degrees Fahrenheit, weight is 210 pounds. GENERAL: The patient is awake, alert, oriented, appropriate, very pleasant demeanor. HEENT: Head shows normocephalic, atraumatic. Extraocular movements are intact and symmetrical. Oral cavity: Mucous membranes moist and pink. Dentition is intact. NECK: Shows anterior throat supple without palpable lymphadenopathy noted. Swallow reflex symmetrical. CHEST: Shows normal on inspection. Breath sounds clear. HEART: Shows S1, S2 clear. ABDOMEN: Soft. BACK: Shows spine grossly in the midline. Cervical paraspinous muscle shows symmetrical on inspection, with palpation shows some moderate tenderness diffusely bilaterally going diffusely without significant radiation. The patient does show good rotational motion of cervical spine with some minor tenderness with extension but not flexion, right or left lateral rotation. EXTREMITIES: Upper extremities show deep tendon reflexes 2+ in the biceps, triceps tendons. Motor exam is strong with approximately 4 on a scale of 5 on the left with last dipper strength and 5/5 on the right. Lower extremities show deep tendon reflexes 1+ in the patellar and tendo calcaneus tendons. Motor exam is strong with 5/5 dorsiflexion, extension bilaterally. Peripheral pulses are 2+ radial, 1+ posterior tibia. No peripheral edema is noted bilaterally. PLAN: Options were discussed with the patient. The patient's old chart was reviewed as his current medication regimen updated. Current review of systems updated today as well and we will have the patient hold Plavix for 7 days prior to lumbar epidural steroid injection. He would like to proceed with this. The patient will return to clinic after Plavix is held as he has already gotten clearance from his chairman ceo to do so for his cervical injections and we will have him return for lumbar epidural steroid injection at that time. In the meantime, maintain a neurosurgical appointment as scheduled. SHA CASTILLO MD DR: TON/mynor JOB#: [id number] / [id number]
== END | disposition home or self-care (01) ==
LOC: PNCL 08:58
PROVIDERS: ATTEND Anesthesiology
DX: M51.16 Intervertebral disc disorders with radiculopathy, lumbar region (principal); M50.10 Cervical disc disorder with radiculopathy, unspecified cervical region
CPT/HCPCS: G0463

== ENCOUNTER → 2019-05-19 | Outpatient (CLI) | payer MEDICARE, OTHER ==
[~2019-05-19] MED LIST changes: +BUPIVACAINE MPF 0.25% 10 ML VIAL. ONE; +IOHEXOL 180 MG/ML 10 ML VIAL. ONE; +methylPREDNISolone ACETATE 40 MG/ML VIAL. ONE; +methylPREDNISolone ACETATE 80 MG/ML VIAL. ONE
--- NOTE | 2019-05-19 11:14 | PAIN ---
DATE OF SERVICE: 05/19/2019 PROGRESS NOTE FOR PAIN CLINIC DIAGNOSES: 1. Cervical radiculopathy with cervical degenerative disk disease. 2. Lumbar radiculopathy with lumbar degenerative disk disease. HISTORY OF PRESENT ILLNESS: The patient is an 79-year-old male, who returns for followup status post evaluation and clearance to hold his Plavix for 7 days, he has been off this now, returns wishing to proceed, still pain in the low back, left lower extremity, posterior gluteus, posterolateral thigh, lateral anterior thigh, medial thigh and posterior calf as previously. The patient reports no new motor or sensory deficits, no new bowel or bladder incontinence. Reports the pain is a 3 on a scale of 10 at all times, worst, average and least over the past week and is a 3 today. The patient reports it is aching and dull, shooting, also radiating and cramping at times in the leg and back. The patient reports no new motor or sensory deficits, no new bowel or bladder incontinence or other complaints. PHYSICAL EXAMINATION: VITAL SIGNS: The patient's blood pressure is 128/62, pulse 54, respirations 16, temperature 98.1 degrees Fahrenheit, height is 5 feet 7 inches, weight is 210 pounds. GENERAL: The patient is awake, alert, oriented, appropriate, very pleasant demeanor. HEENT: Shows normocephalic, atraumatic. Extraocular movements are intact and symmetrical. Oral cavity: Mucous membranes moist and pink; dentition is intact. NECK: Shows anterior throat supple without palpable lymphadenopathy noted. Swallow reflex symmetrical. CHEST: Shows normal on inspection. Breath sounds are clear bilaterally. HEART: Shows S1, S2 clear. No murmurs auscultated. ABDOMEN: Soft, nontender and nondistended. BACK: Shows spine grossly in the midline, normal-appearing thoracic kyphosis and minor flattening of lumbar lordotic curvature. Lumbar paraspinous muscle shows symmetrical on inspection, on palpation shows some moderate tenderness diffusely bilaterally, but only diffusely without significant radiation. The patient has good rotational motion of lumbar spine, both laterally as well as extension and flexion without difficulty. EXTREMITIES: Lower extremities show deep tendon reflexes at 2+ in the patellar and 1+ in the tendo-calcaneus tendons. Motor exam is strong with 5/5 dorsiflexion, extension, quadriceps and hamstring flexion. Peripheral pulses are 1+ posterior tibial. No peripheral edema is noted. Options were discussed with the patient. The patient's old chart was reviewed as his current medication regimen updated. Current review of systems updated today as well. We will proceed with a first in this series of lumbar epidural steroid injection today with fluoroscopic guidance. Risks were again discussed including, but not limited to bleeding, infection, possibility of epidural hematoma, subsequent neurological compromise, dural puncture, headaches, spinal cord and/or nerve damage, side effects of steroid medication and poor results regarding pain control. The patient understands and wished to proceed. The patient will return to clinic in approximately 2 weeks for followup. He was counseled on return appointment, activity level and side effects to be aware of. DIAGNOSIS: Lumbar radiculopathy with lumbar degenerative disk disease. PROCEDURE: Lumbar epidural steroid injection, translaminar approach, L4-L5 level, using C-arm fluoroscopic guidance under sterile prep and drape using local anesthetic. MEDICATIONS INJECTED: A total of 120 mg Depo-Medrol plus 10 mL of preservative-free normal saline and 2 mL of contrast. CONDITION AT DISCHARGE: Stable. The patient tolerated the procedure well, had no complications. SHA CASTILLO MD DR: TON/mynor JOB#: [id number] / [id number]
== END | disposition home or self-care (01) ==
LOC: PNCL 09:07
PROVIDERS: ATTEND Anesthesiology
DX: M51.16 Intervertebral disc disorders with radiculopathy, lumbar region (principal); M50.10 Cervical disc disorder with radiculopathy, unspecified cervical region; Z98.890 Other specified postprocedural states
CPT/HCPCS: 62323; J1030; J1040; J3490; Q9965

== ENCOUNTER → 2019-06-09 | Outpatient (CLI) | payer MEDICARE, OTHER ==
[~2019-06-09] MED LIST changes: -BUPIVACAINE MPF 0.25% 10 ML VIAL. ONE
--- NOTE | 2019-06-09 11:19 | PAIN ---
DATE OF SERVICE: 06/09/2019 PROGRESS NOTE FOR PAIN CLINIC DIAGNOSES: 1. Cervical radiculopathy with cervical degenerative disk disease. 2. Lumbar radiculopathy with lumbar degenerative disk disease. HISTORY OF PRESENT ILLNESS: The patient is an 79-year-old male who returns for followup status post lumbar epidural steroid injection x 1. The patient reports a significant improvement near 100% in his back, still some pain in the left leg with walking, standing, changing positions, radiating to posterior gluteus, posterolateral thigh, lateral anterior thigh, medial thigh and medial calf. The patient reports it is aching and dull, worse with walking, standing, changing positions, but he has been increasing his distance walking with greater ease and comfort since his last visit, also been sleeping better at night, although still awakens him from sleep about every 5-6 hours. The patient reports the pain is a 3 on a scale of 10 at all times, worst, least and its average and is a 3 today. The patient reports it is aching in the back and left leg. The patient reports no new motor or sensory deficits, no new bowel or bladder incontinence or other complaints. PHYSICAL EXAMINATION: VITAL SIGNS: The patient's blood pressure 131/56, pulse 64, respirations 18, temperature 97.8 degrees Fahrenheit, height is 5 feet 7 inches, weight is 208 pounds. GENERAL: The patient is awake, alert, oriented, appropriate, very pleasant demeanor. HEENT: Shows normocephalic, atraumatic. Extraocular movements are intact and symmetrical. Oral cavity: Mucous membranes moist and pink. Dentition is intact. NECK: Shows anterior throat supple without palpable lymphadenopathy noted. Swallow reflex symmetrical. CHEST: Shows normal on inspection. Breath sounds are clear bilaterally. HEART: Shows S1, S2 clear. No murmurs auscultated. ABDOMEN: Soft, nontender, nondistended. No palpable organomegaly is noted. No rebound or guarding demonstrated. BACK: Shows spine grossly in the midline. Normal appearing thoracic kyphosis, cervical lordotic curvature slightly flattened, lumbar lordotic curvature slightly flattened. Lumbar paraspinous muscle shows symmetrical on inspection, on palpation shows some moderate tenderness, but only diffusely in the low lumbar distribution bilaterally. The patient has good rotational motion of lumbar spine, both laterally as well as extension and flexion without significant pain reported. EXTREMITIES: The patient's lower extremities show deep tendon reflexes 2+ in the patellar, 1+ tendo-calcaneus tendons. Motor exam is strong with 5/5 dorsiflexion, extension, quadriceps and hamstring flexion symmetrical. Peripheral pulses are 1+ posterior tibia. No peripheral edema bilaterally. Options were discussed with the patient. The patient's old chart was reviewed as his current medication regimen updated. Current review of systems updated today as well. We will proceed with a second in a series of lumbar epidural steroid injection today with fluoroscopic guidance. Risks were again discussed including, but not limited to bleeding, infection, possibility of epidural hematoma, subsequent neurological compromise, dural puncture, headaches, spinal cord and/or nerve damage, side effects of steroid medication and poor results regarding pain control. The patient understands and wished to proceed. The patient will return to clinic in approximately 2 weeks for followup. He was counseled on return appointment, activity level and side effects to be aware of. DIAGNOSES: Lumbar radiculopathy with lumbar degenerative disk disease. PROCEDURE: Lumbar epidural steroid injection, translaminar approach at L4-L5 level using C-arm fluoroscopic guidance under sterile prep and drape using local anesthetic. MEDICATION INJECTED: A total of 120 mg Depo-Medrol plus 10 mL of preservative-free normal saline and 2 mL of contrast. CONDITION AT DISCHARGE: Stable. The patient tolerated the procedure well, had no complications. SHA CASTILLO MD DR: TON/mynor JOB#: [id number] / [id number]
== END ==
LOC: PNCL 09:44
PROVIDERS: ATTEND Anesthesiology
DX: M51.16 Intervertebral disc disorders with radiculopathy, lumbar region (principal); M50.10 Cervical disc disorder with radiculopathy, unspecified cervical region
CPT/HCPCS: 62323; J1030; J1040; Q9965

== ENCOUNTER → 2019-10-17 | Outpatient (CLI) | payer MEDICARE, OTHER ==
[~2019-10-17] MED LIST changes: +DOCU-153 PO; +HYDR-2761 PO; -IOHEXOL 180 MG/ML 10 ML VIAL. ONE; +METH750T2 PO; -methylPREDNISolone ACETATE 40 MG/ML VIAL. ONE; -methylPREDNISolone ACETATE 80 MG/ML VIAL. ONE
[2019-10-17 16:20] LABS: BASO % 1 % (0-3); EOS # 0.2 x10^3/uL (0.0-0.7); EOS % 4 % (0-3); HEMOGLOBIN 11.3 g/dL (13.0-17.5); LYMPH # 1.3 x10^3/uL (1.0-4.8); LYMPH % 23 % (24-48); MEAN CORPUSCULAR HEMOGLOBIN 32 pg (25-35); MEAN CORPUSCULAR HGB CONC 34 g/dL (31-37); MEAN CORPUSCULAR VOLUME 93 fL (79-100); MONO # 0.6 x10^3/uL (0.0-1.1); MONO % 11 % (0-9); NEUT # 3.4 x10^3/uL (1.8-7.7); NEUT % 62 % (31-73); PLATELET COUNT 143 x10^3/uL (140-400); RED BLOOD COUNT 3.57 x10^6/uL (4.30-5.70); RED CELL DISTRIBUTION WIDTH 14.4 % (11.5-14.5); WHITE BLOOD COUNT 5.5 x10^3/uL (4.0-11.0)
[2019-10-17 16:40] LABS: ALBUMIN 3.9 g/dL (3.4-5.0); ALBUMIN/GLOBULIN RATIO 1.1 (1.0-1.7); CALCIUM 8.9 mg/dL (8.5-10.1); CREATININE 1.4 mg/dL (0.7-1.3); GFR 48.8; POTASSIUM 4.5 mmol/L (3.5-5.1); TOTAL BILIRUBIN 0.3 mg/dL (0.2-1.0); TOTAL PROTEIN 7.5 g/dL (6.4-8.2)
== END | disposition home or self-care (01) ==
LOC: SURGPAT 14:28
PROVIDERS: ATTEND Neurological Surgery
DX: Z01.818 Encounter for other preprocedural examination (principal); Z11.59 Encounter for screening for other viral diseases; M48.02 Spinal stenosis, cervical region; M47.892 Other spondylosis, cervical region
CPT/HCPCS: 36415; 80053; 85025; 87641; U0003

== ENCOUNTER 2019-10-24 07:06 | Inpatient (IN) | payer MEDICARE, OTHER ==
--- NOTE | 2019-10-21 16:19 | PREOP HP ---
DATE OF SERVICE: 10/24/2019 PREOPERATIVE HISTORY AND PHYSICAL DATE OF SURGERY: 10/24/2019 HISTORY OF PRESENT ILLNESS: The patient is a pleasant 79-year-old who has difficulty with neck pain and numbness and tingling in his upper extremities. He relates that he also notices weakness in his hands. He has had difficulty holding objects. The right is more involved than the left. He says that this occurs with looking up. He said that the problem began about a year ago. He relates that to falling out of a chair. He says over the last year the problem is staying about the same and not worsening or improving. The pain can reach to 10/10 when he looks up. Changing positions helps him. He rarely takes tramadol. He did see a chiropractor, which was of no benefit. He had [address] epid[address] injections [address] Castellon, which was not helpful. PAST MEDICAL HISTORY: Head or neck injury, heart trouble and disease, hypertension, swelling of limbs, diabetes. PAST SURGICAL HISTORY: Appendectomy in 7, cardiac bypass in 2000, cholecystectomy in 2007, cardiac stent in 2018. FAMILY HISTORY: Cancer, diabetes, heart problems, hypertension. SOCIAL HISTORY: Retired. . Rarely exercises. Denies substance abuse. Denies tobacco use. Former smoker. Drinks alcohol 1-2 times per year. Drinks coffee daily. ALLERGIES: No known drug allergies. CURRENT MEDICATIONS: Hydrochlorothiazide, temazepam, rosuvastatin, glimepiride, metformin, pioglitazone, metoprolol, sertraline, clopidogrel, aspirin and tramadol. REVIEW OF SYSTEMS: A 12-point review of systems was obtained and is noncontributory except for that mentioned above. PHYSICAL EXAMINATION: NEUROSURGERY EXAMINATION: GENERAL APPEARANCE: Alert and pleasant, in no acute distress. HEAD: Normocephalic, atraumatic. NECK AND THYROID: Oelx-hb-vplyasuo tenderness with palpation of posterior cervical region. SKIN: Warm and dry. MUSCULOSKELETAL: Cervical paraspinal muscle bulk is normal, cervical range of motion is restricted, normal range of motion of the upper extremities bilaterally. EXTREMITIES: No clubbing, cyanosis or edema. NEUROLOGIC: Alert and oriented x 3, normal recent and remote memory. Strength 5/5 in bilateral upper and lower extremities except for his hands in which there is a 4/5 hand grasp bilaterally. Sensory was intact to light touch in the upper and lower extremities. Reflexes are present and symmetric in the upper and lower extremities bilaterally, normal gait. IMAGING: I reviewed a cervical MRI scan. The principal abnormalities are at C4-C5 where there is a central disk protrusion with moderately severe cervical stenosis along with cord flattening and moderate left neural foraminal narrowing. At C5-C6, there is a disk osteophyte complex with pligsaby-bp-thummi canal narrowing and cord flattening. There is severe bilateral neural foraminal narrowing at this level. ASSESSMENT/ PLAN: I believe the problems at C4-C5 and C5-C6 are responsible for his symptoms. I believe that when he looks up, the disc extrusion increases and become symptomatic. He has had 3 epidural steroid injections without benefit. He has had chiropractic treatment without benefit. My recommendation will be that he considers a 2-level ACDF. I did discuss this with him in detail including the technique, risks, and expected postoperative course. He understands. He would like to go ahead. We will make the arrangements. VICKI HONG MD DR: JOYCE/mynor JOB#: [id number] / [id number] DEMARCO
[2019-10-24] VITALS (11 sets, daily range): BP systolic 123–157; BP diastolic 54–68
[~2019-10-24] VITALS: Ht 170.2 cm; Wt 94.3 kg
[~2019-10-24 07:06] MED LIST changes: +BACITRACIN 50,000 UNIT in IV NORMAL SALINE 1000ML BAG 1,000 ML IRR ONE; +BUPIVACAINE-EPI 0.5%-1:200000 MPF 30 ML VIAL. ONE; -DOCU-153 PO; +GELATIN SPONGE SIZE 100. ONE; -HYDR-2761 PO; +HYDROmorphone 2 MG/ML VIAL IV PRN; +INSULIN LISPRO 100 UNIT/ML 3ML VIAL for OP,RR ONLY. SQ PRN; +IV RINGERS,LACTATED 1000ML 1,000 ML IV SCH; +LIDOCAINE 1% PF 2 ML VIAL. ID PRN; -METH750T2 PO; +ONDANSETRON PF 4 MG/2 ML VIAL. IV PRN; +PROCHLORPERAZINE 10 MG/2 ML VIAL. IV PRN; +THROMBIN TOPICAL 20,000 UNIT SPRAY.SYRN KIT TP ONE; +fentaNYL PF VIAL 100 MCG/2 ML VIAL IV PRN
[2019-10-24] MEDS ORDERED: PROPOFOL 10 MG/ML (20ML) VIAL. IV ONE (07:46)
[2019-10-24] MEDS ORDERED: SUCCINYLCHOLINE 200 MG/10 ML VIAL. ONE (07:46)
[2019-10-24] MEDS ORDERED: PROPOFOL 50 ML IV ONE ×2 (07:46→11:12)
[2019-10-24] MEDS ORDERED: LIDOCAINE 2% PF 5 ML VIAL. ONE (07:46)
[2019-10-24] MEDS ORDERED: fentaNYL PF VIAL 100 MCG/2 ML VIAL ONE ×2 (07:46→13:05)
[2019-10-24] MEDS ORDERED: REMIFENTANIL 1 MG VIAL. IV ONE ×2 (07:47→11:20)
[2019-10-24] MEDS ORDERED: ROCURONIUM 50 MG/5 ML VIAL. ONE (07:47)
[2019-10-24] MEDS ORDERED: 0.9 % SODIUM CHLORIDE 20 ML VIAL. IJ ONE ×3 (07:48→11:23)
[2019-10-24] MEDS: IV NORMAL SALINE 1000ML BAG 1,000 ML IV SCH ×2 (07:52→21:20)
[2019-10-24] MEDS ORDERED: DEXAMETHASONE SOD PHOS 20 MG/5 ML VIAL. ONE (09:54)
[2019-10-24] MEDS ORDERED: PHENYLEPHRINE in 0.9% NACL PF 1 MG/10 ML SYRINGE. IV ONE (09:54)
[2019-10-24] MEDS ORDERED: ONDANSETRON PF 4 MG/2 ML VIAL. ONE (09:54)
[2019-10-24] MEDS ORDERED: CALCIUM CARBONATE 500 MG TAB.CHEW PO PRN (11:00)
[2019-10-24] MEDS ORDERED: traMADol 50 MG TABLET PO PRN (11:00)
[2019-10-24] MEDS ORDERED: DEXTROSE 50% 25 GM / 50ML DISP.SYRIN. IV PRN (11:00)
[2019-10-24] MEDS ORDERED: fentaNYL PF VIAL 100 MCG/2 ML VIAL IVP PRN (11:00)
[2019-10-24] MEDS ORDERED: NALOXONE 0.4 MG/ML VIAL. IV PRN (11:00)
[2019-10-24] MEDS ORDERED: ONDANSETRON PF 4 MG/2 ML VIAL. IVP PRN (11:00)
[2019-10-24] MEDS ORDERED: diphenhydrAMINE HCL 25 MG CAPSULE PO PRN (11:00)
[2019-10-24] MEDS ORDERED: ACETAMINOPHEN 325 MG TABLET. PO PRN (11:00)
[2019-10-24] MEDS ORDERED: MAGNESIUM HYDROXIDE 2,400 MG/30 ML ORAL.SUSP. PO PRN (11:00)
[2019-10-24] MEDS ORDERED: 0.9 % SODIUM CHLORIDE 10 ML DISP.SYRIN. IV PRN (11:00)
[2019-10-24] MEDS ORDERED: MAG HYDROX/ALUMINUM HYD/SIMETH 30 ML ORAL.SUSP PO PRN (11:00)
[2019-10-24] MEDS ORDERED: NEOSTIGMINE METHYLSULFATE 5 MG/5 ML SYRINGE. ONE (12:26)
[2019-10-24] MEDS ORDERED: GLYCOPYRROLATE 1 MG/5 ML VIAL. ONE (12:26)
[2019-10-24] MEDS: fentaNYL PF VIAL 100 MCG/2 ML VIAL IV PRN ×2 (13:09→13:25)
[2019-10-24] MEDS ORDERED: MORPHINE SULFATE 2 MG/ML VIAL. ONE (13:27)
[2019-10-24] MEDS: MORPHINE SULFATE 2 MG/ML VIAL. IV PRN ×2 (13:29→13:41)
--- NOTE | 2019-10-24 14:00 | NUR ---
Rec'd from PACU per bed, alert/oriented, anterior cervical dressing clean, dry & intact, with soft cervical collar in place for support, rates discomfort level 8/10, ice pack to posterior neck between shoulder blades placed, HOB elevated, denies numbness or tingling, bilateral milk runner equal, call light within reach, family members at bedside
[2019-10-24] MEDS: METHOCARBAMOL 750 MG TABLET PO PRN (14:30)
[2019-10-24] MEDS: HYDROcodone/APAP 5/325MG 1 TAB TABLET PO PRN ×2 (15:38→23:28)
[2019-10-24] MEDS: POTASSIUM CL 20MEQ-0.45% NACL 1,000 ML IV SCH (15:41)
--- NOTE | 2019-10-24 17:03 | OP ---
DATE OF SURGERY: 10/24/2019 PREOPERATIVE DIAGNOSES: Cervical spinal stenosis and foraminal narrowing, C4-C5, C5-C6. POSTOPERATIVE DIAGNOSES: Cervical spinal stenosis and foraminal narrowing, C4-C5, C5-C6. OPERATION PERFORMED: Anterior cervical microdiscectomy, C4-C5; anterior cervical microdiscectomy, C5-C6; at both levels interbody fusion cages were placed with allograft bone; anterior cervical plate, C4, C5, C6. The operation was done with multimodality monitoring including EMG, SSEP, NIMS monitoring. We also used fluoroscopy, microscopic dissection. SURGEON: Jian Hong M.D. EPIC AMBULATORY ANALYST: NESHA De La Cruz assisted with the surgery. She assisted with the exposure, the microdecompression of both levels as well as the placement of interbody fusion cages, plate and closure. OPERATIVE INDICATIONS: The patient is a pleasant 79-year-old man who developed problems with intractable neck and bilateral arm pain along with weakness in his upper extremities. The pain can become quite severe. He has had conservative measures including epidural steroid injections, which were not particularly helpful. On imaging studies, the above-mentioned findings were seen and I recommended an anterior cervical microdiscectomy and fusion. I spoke with him about the surgery, the risks, the technique and the expected postoperative course. He understood and wished to go ahead. I did outline the soft tissue structures of the neck and sequelae of injury to each. I spoke about the expected postoperative course as well. DESCRIPTION OF PROCEDURE: Following general endotracheal anesthesia, the patient was positioned supine with the head in a neutral position. The anterior cervical region was then prepped and draped in the standard fashion. ALTON hose and AV impulse boots were applied for DVT prophylaxis. A microscope was draped. Fluoroscopy was draped and brought into the field. Monitoring was established. Ancef 2 grams was given less than 1 hour prior to initiation of the surgery. Using fluoroscopic guidance, incision was made in the midline around to the right side in a skin crease. I dissected down through skin and subcutaneous tissue and opened the platysma, then dissected around the medial aspect of the sternocleidomastoid and carotid artery sheath down the anterior cervical vertebral bodies. I reflected the trachea and esophagus laterally and then exposed the C4-C5 and C5-C6 without difficulty. I placed an anterior cervical retractors. I placed distraction pins in C5 and C6 and brought in the microscope during this time. I incised the anterior annulus and also we used the high speed air drill and burred with the spurring to allow access to the disc. I then performed a generous discectomy. In order to gently distract the disc space, I scraped away the cartilaginous endplates and removed further disc and then posteriorly, I used the 1 and 2 mm micro Kerrison's to trim laterally bilaterally. I opened the annulus and then the ligament and I was able to pass a blunt hook out into each foramen without difficulty after I worked quite widely. I then measured and placed a 6-mm interbody fusion cage after I obtained perfect hemostasis, which was packed with allograft bone. Once this was tapped into position, I removed the pin from C6 and moved it up to C4 and then performed the identical operation at C4-C5. At this level, there was not quite as much degenerative change and more disc. I did gently scrape away the disc and then I drilled the spurring. I used the 1 and 2 mm micro Kerrison's to trim away the posterior spurring and then I opened the annulus and opened this widely followed by the ligament and again at this level, I was able to pass a blunt out laterally without any difficulty. I again scraped cartilaginous endplate. I again assured myself of perfect hemostasis. I placed 2 small pieces of Gelfoam in each lateral gutter and hemostasis was perfect. I gently tapped into the interbody fusion cage, which was packed with allograft bone, removed the pins and covered those openings with bone wax and then selected a plate using the [place] system and I placed the superior and inferior 14 mm screws first, followed by the remaining screws. I felt that the right-sided screw at the C5 did not have good purchase and I backed this out and placed a rescue screw. I then locked the construct to assure the screws would not back out. I irrigated copiously. Hemostasis was absolutely excellent. I did Valsalva the patient and confirmed this. I gently after removing the retractors, I irrigated and then I closed the wound in layers with absorbable suture. Again, after perfect hemostasis had been maintained. The skin was closed with 4-0 subcuticular stitch. The surgery went very well and the patient was awakened uneventfully, taken to recovery room in excellent condition. I was quite pleased with the surgery. JIAN HONG MD DR: JOYCE/myonr JOB#: [id number] / [id number] DEMARCO
[2019-10-24] MEDS: metFORMIN 500 MG TABLET PO SCH (17:53)
[2019-10-24] MEDS: ceFAZolin SODIUM IV Push 1 GM VIAL. IVP SCH (18:05)
[2019-10-24] MEDS: DOCUSATE SODIUM 100 MG CAPSULE. PO SCH (21:00)
[2019-10-24] MEDS ORDERED: TEMAZEPAM 15 MG CAPSULE PO SCH (21:00)
[2019-10-24] MEDS: METOPROLOL TART IMMED RELEASE 25 MG TABLET. PO SCH (21:22)
[2019-10-25] MEDS: ceFAZolin SODIUM IV Push 1 GM VIAL. IVP SCH ×2 (02:10→10:10)
[2019-10-25] MEDS: METHOCARBAMOL 750 MG TABLET PO PRN ×2 (02:10→10:08)
[2019-10-25 07:00] VITALS: BP 149/56
[2019-10-25] MEDS: POTASSIUM CL 20MEQ-0.45% NACL 1,000 ML IV SCH (07:00)
[2019-10-25] MEDS: HYDROcodone/APAP 5/325MG 1 TAB TABLET PO PRN ×2 (08:10→13:31)
[2019-10-25] MEDS: metFORMIN 500 MG TABLET PO SCH (08:10)
[2019-10-25] MEDS: METOPROLOL TART IMMED RELEASE 25 MG TABLET. PO SCH (08:11)
[2019-10-25] MEDS: DOCUSATE SODIUM 100 MG CAPSULE. PO SCH (08:11)
[2019-10-25] MEDS ORDERED: GLIMEPIRIDE 2 MG TABLET. PO SCH (09:00)
[2019-10-25] MEDS ORDERED: PIOGLITAZONE 15 MG TABLET. PO SCH (09:00)
[2019-10-25] MEDS ORDERED: SERTRALINE 50 MG TABLET. PO SCH (09:00)
[2019-10-25] MEDS ORDERED: hydroCHLOROthiazide 25 MG TABLET PO SCH (09:00)
[2019-10-25] MEDS ORDERED: PSEUDOEPHEDRINE ER 120 MG TABLET.ER. PO SCH (09:00)
[2019-10-25] MEDS ORDERED: ASPIRIN ENTERIC COATED 325 MG TABLET.DR. PO SCH (09:00)
[2019-10-25] MEDS ORDERED: ATORVASTATIN CALCIUM 40 MG TABLET. PO SCH (09:00)
[2019-10-25] MEDS: IV NORMAL SALINE 1000ML BAG 1,000 ML IV SCH (10:07)
[2019-10-25 11:00] VITALS: BP 131/48
[2019-10-25] MEDS ORDERED: DOCU-153 PO (12:22)
[2019-10-25] MEDS ORDERED: HYDR-2761 PO (12:22)
[2019-10-25] MEDS ORDERED: METH750T2 PO (12:22)
--- NOTE | 2019-10-25 12:23 | DISCH ---
DISCHARGE INSTRUCTIONS Condition on Discharge Condition on Discharge: Stable Activity After Discharge Activity Instructions for Disc: Activity as tolerated, Avoid exertion, Prog ressive ambulation Other activity instructions: no driving for a week, soft collar for comfort Bathing Instructions: Shower-keep dressing dry Lifting Instructions after Dis: No heavy lifting, No pulling or pushing, Do not lift >10 pounds Exercise Instruction after Dis: Progress as tolerated Driving Instructions after Dis: Other, see below Weight Bearing Status after Di: No restrictions Diet after Discharge Diet after Discharge: No Added Salt, No Added Sugar, Regular Additional Diet Restrictions: resume home diet Diet Texture: Regular Wound Incision Care Wound/Incision Care: May get incision wet Contacting the DRSouleymane after DC Call your doctor for: Concerns you may have Follow-Up Follow up with: Dr. Hong's nurse in 2 weeks [phone] VICKI HONG MD Oct 25, 2019 12:23
--- NOTE | 2019-10-25 14:05 | DS ---
DATE OF DISCHARGE: 10/25/2019 DISCHARGE DIAGNOSES: Cervical spinal stenosis and foraminal narrowing C4-C5, C5-C6. OPERATION PERFORMED: ACDF C4-C5, C5-C6. OPERATIVE DESCRIPTION: The patient is a pleasant 79-year-old man who developed problems with intractable neck and bilateral arm pain along with weakness in his upper extremities. The pain was quite severe. He had conservative measures including epidural steroid injections, which were not particularly helpful. On imaging studies, he had the above-mentioned findings and I recommended an anterior cervical microdiskectomy and fusion. I spoke with him about the surgery, the risks, the technique and the expected postoperative course and he wished to go ahead. HOSPITAL COURSE: He was admitted to the floor postoperatively where he did well. He was up ambulating in the room and in the halls. Physical therapy was initiated and instruction was given to him regarding his activities. His pain is well controlled and he is in good condition to discharge home today. DISCHARGE MEDICATIONS: He will resume his medications per the MRAD. DISCHARGE INSTRUCTIONS: He was instructed regarding incision care, activity restrictions and expectations for the next several weeks. He will follow up in our office in 2 weeks. He understands to call with any questions or concerns. VICKI HONG MD DR: ANDREA/mynor JOB#: [id number] / [id number]
--- NOTE | 2019-10-25 14:33 | NUR ---
Patient left around 1415 with his . Discharge education given to the patient in detail by this nurse. Scripts for lortab and robaxin given to patient. aware of discharge orders and scripts as well. Surgical dressing still in place with no drainage noted. No concerns at discharge.
--- NOTE | 2019-10-25 18:06 | PATHOLOGY ---
[facility] Accession Number: [id number] . 01 Material submitted: . vertebral column - CERVICAL DISC . 01 Clinical history: . Cervical stenosis, spondylosis . 02 Diagnosis: Segments of cartilaginous tissue and bone, cervical disc: - Degenerative changes of cartilaginous tissue. (JPM:clock maker; 10/25/2019) MBR 10/25/2019 1551 Local . 02 Comment: There is no evidence of an acute inflammatory process or malignancy. (JPM:[place]; 10/25/2019) . 02 Electronically signed: . Jean Pierre Chirinos MD, Pathologist NPI- [id number] . 01 Gross description: . The specimen is received in formalin, labeled "Claudia, Sherwin, cervical disc" and consists of multiple fragments of gritty pink-voss tissue admixed with minute fragments of bone measuring 6.3 x 2.4 x 0.3 cm in aggregate which are entirely submitted in A1-A3 following decalcification ([facility]; 10/24/2019) JFQ/JFQ 10/24/2019 1856 Local . 02 Pathologist provided ICD-10: M99.71, M47.9 . 02 CPT . 545839, 606061 Specimen Comment: A courtesy copy of this report has been sent to [phone], [phone] Specimen Comment: [id number] Specimen Comment: Report sent to / DR SHETH Performed at: 01 [facility] [address], [place] [id number] MD Jun Mooney MD Phone: [phone] Performed at: 02 [facility] [address], [place] [id number] MD Jean Pierre Chirinos MD Phone: [phone]
== END 2019-10-25 14:20 | disposition home or self-care (01) | DRG 473 ==
LOC: OPSVCIP 07:06 → 4 NORTH 14:25
PROVIDERS: ADMIT Neurological Surgery; ATTEND Neurological Surgery
PROC: 0RB30ZZ Excision of Cervical Vertebral Disc, Open Approach (ICD-10-PCS; 2019-10-24)
PROC: 4A11X4G Monitoring of Peripheral Nervous Electrical Activity, Intraoperative, External Approach (ICD-10-PCS; 2019-10-24)
PROC: 0RG20AJ Fusion of 2 or more Cervical Vertebral Joints with Interbody Fusion Device, Posterior Approach, Anterior Column, Open Approach (ICD-10-PCS; principal; 2019-10-24 08:30)
DX: M48.02 Spinal stenosis, cervical region (principal); Z79.899 Other long term (current) drug therapy; Z90.49 Acquired absence of other specified parts of digestive tract; Z95.1 Presence of aortocoronary bypass graft; Z83.3 Family history of diabetes mellitus; Z82.49 Family history of ischemic heart disease and other diseases of the circulatory system; M47.812 Spondylosis without myelopathy or radiculopathy, cervical region
CPT/HCPCS: 76000; 82962; 88304; 88311; A7015; C1713; J0330; J0690; J1100; J1815; J2270; J2370; J2405; J2704; J2710; J3010; J3480; J3490; J7030; J7120; 97116-GP; G0378

== ENCOUNTER → 2020-04-03 | Outpatient (CLI) | payer MEDICARE, OTHER ==
[~2020-04-03] MED LIST changes: -BACITRACIN 50,000 UNIT in IV NORMAL SALINE 1000ML BAG 1,000 ML IRR ONE; -BUPIVACAINE-EPI 0.5%-1:200000 MPF 30 ML VIAL. ONE; +DOCU-153 PO; -GELATIN SPONGE SIZE 100. ONE; +HYDR-2761 PO; -HYDROmorphone 2 MG/ML VIAL IV PRN; -INSULIN LISPRO 100 UNIT/ML 3ML VIAL for OP,RR ONLY. SQ PRN; -IV RINGERS,LACTATED 1000ML 1,000 ML IV SCH; -LIDOCAINE 1% PF 2 ML VIAL. ID PRN; +METH750T2 PO; -ONDANSETRON PF 4 MG/2 ML VIAL. IV PRN; -PROCHLORPERAZINE 10 MG/2 ML VIAL. IV PRN; -THROMBIN TOPICAL 20,000 UNIT SPRAY.SYRN KIT TP ONE; -fentaNYL PF VIAL 100 MCG/2 ML VIAL IV PRN
--- NOTE | 2020-04-04 11:39 | SLEEP ---
DATE OF STUDY: 04/03/2020 HOME SLEEP STUDY REFERRING PHYSICIAN: Pastor Delacruz MD The patient is an 80-year-old who weighs 210 pounds with a BMI of 32.9. The patient underwent home sleep study performed at [facility]. Total recording time was 543 minutes. During the night study, the patient had 76 obstructive apneas, 103 central apneas and 59 mixed apneas. The patient also had 56 hypopneas. The patient's AHI was 32.5 per hour. Nocturnal oximetry study revealed an average oxygen saturation of 92% with a lowest of 81%. Forty-one minutes were spent with oxygen saturation of less than 90%. Mean heart rate 62 beats per minute. ASSESSMENT: 1. Severe sleep apnea. It was a combination of obstructive and central apneas. 2. Nocturnal hypoxia secondary to sleep apnea. RECOMMENDATIONS: 1. The patient would benefit from in-lab CPAP titration study due to severe mixed apneas. 2. Once the patient is optimally treated, then follow up in 4-6 weeks to assess compliance and to document clinical improvement. 3. Weight loss is strongly advised. 4. Avoid [employer]AMENT [employer] depressants. 5. Caution regarding driving until symptoms of sleep apnea resolve with the use of CPAP. PASTOR DELACRUZ MD DR: TIMO/mynor JOB#: [id number] / [id number]
== END ==
LOC: RT 09:10
PROVIDERS: ATTEND Internal Medicine Critical Care Medicine
DX: G47.33 Obstructive sleep apnea (adult) (pediatric) (principal); R06.83 Snoring; R09.02 Hypoxemia
CPT/HCPCS: G0399

== ENCOUNTER → 2020-04-17 | Outpatient (CLI) | payer MEDICARE, OTHER ==
[~2020-04-17] MED LIST changes: +ZOLPIDEM 5 MG TABLET. PO ONE
--- NOTE | 2020-04-18 12:49 | SLEEP ---
DATE OF STUDY: 04/17/2020 SLEEP STUDY ATTENDING PHYSICIAN: Liu Alaniz MD. The patient is a 80-year-old who weighs 205 pounds with a BMI of 32. The patient had a severe RY based on home sleep study. The patient's AHI was 32.5 per hour. The patient was referred for in-lab CPAP titration study. During the night study, the patient spent 400 minutes in bed and slept for 319 minutes with a sleep efficiency of 80%. Sleep latency was 31 minutes with a REM latency of 101 minutes. Sleep architecture showed increased stage 1 and stage 2 sleep, normal slow wave and reduced REM sleep. EKG monitoring revealed normal sinus rhythm, no arrhythmias observed. Average heart rate 54 beats per minute. PLMS were seen at index of 22 per hour and none caused EEG arousals. The patient was started on CPAP at 5 cm water and titrated up to 13 cm water. At the final pressure, the patient slept for 162 minutes. The patient had supine as well as REM sleep. The patient's AHI was reduced to 2 per hour and oxygen saturation remained above 91%. IMPRESSION: 1. Severe obstructive sleep apnea diagnosed by home sleep study. 2. Moderate periodic limb movements without any significant EEG arousals. This does not need to be treated. RECOMMENDATIONS: 1. CPAP at 13 cm water completely eliminated the patient's sleep apnea and should be used on a nightly basis. 2. Follow up in 4-6 weeks to assess compliance with CPAP and to document clinical improvement. 3. Weight loss is advised. 4. Avoid [employer]IN[employer]CTOR depressants. 5. Cautioned regarding driving until symptoms of sleep apnea resolve with the use of CPAP. 6. The patient used a medium size full face mask. YASIR GARCIA MD DR: TIMO/mynor JOB#: [id number] / [id number]
== END ==
LOC: RT 18:52
PROVIDERS: ATTEND Internal Medicine Critical Care Medicine
DX: G47.33 Obstructive sleep apnea (adult) (pediatric) (principal); G47.61 Periodic limb movement disorder
CPT/HCPCS: 95811